=== PATIENT | female | born 1995 | race African-American/Black ===

== ENCOUNTER 2020-10-26 11:03 | Emergency (ER) | payer OTHER ==
[~2020-10-26] VITALS: Ht 167.6 cm; Wt 112.6 kg
[2020-10-26 11:03] VITALS: BP 118/80
[2020-10-26] MEDS ORDERED: ACETAMINOPHEN 325 MG TABLET PO ONE (11:30)
[2020-10-26] MEDS ORDERED: LORazepam 1 MG TABLET PO ONE (11:30)
--- NOTE | 2020-10-26 11:35 | PHYS DOC ---
Past History Past Surgical History: No Surgical History (CINDY MONCADA APRN) Alcohol Use: None (CINDY MONCADA APRN) Adult General Chief Complaint Chief Complaint: ANXIETY/PANIC ATTACK HPI HPI Patient is a 24-year-old female who presents to the emergency department complaining of a panic attack at work that resulted in her passing out. 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 Patient reports that her boss had contacted human resources and they wanted to talk to her, patient states at that point she developed a rapid heart rate with chest pain and became dizzy and passed out for 1 minute. Patient denies hitting her head. Patient states that she started feeling better when the ambulance picked her up to bring her to the emergency department. Patient states that since she has been in the emergency department and that she no longer has a rapid heart rate or chest pain or other symptoms. Patient denies homicidal suicidal ideation. Reports seeing a therapist for anxiety problems when she was 20 or 21 years old however has not seen one since. Patient states she is on no medications at home, does not see a doctor regularly, reports her last mental cycle was October 14 with normal duration and flow. Reports a allergy to amoxicillin and Motrin which makes her body swell and tongue close off. Patient denies any other physical complaints or physical concerns. (CINDY MONCADA APRN) Review of Systems Review of Systems 14 body systems of review of systems have been reviewed. See HPI for pertinent positives and negative responses, otherwise all other systems are negative, nonpertinent or noncontributory. Constitutional: Negative except as outlined in HPI above. Skin: Negative except as outlined in HPI above. Eyes: Negative except as outlined in HPI above. HENT: Negative except as outlined in HPI above. Respiratory: Negative except as outlined in HPI above. Cardiovascular: Negative except as outlined in HPI above. GI: Negative except as outlined in HPI above. : Negative except as outlined in HPI above. Musculoskeletal: Negative except as outlined in HPI above. Integument: Negative except as outlined in HPI above. Neurologic: Negative except as outlined in HPI above. Endocrine: Negative except as outlined in HPI above. Lymphatic: Negative except as outlined in HPI above. Psychiatric: Negative except as outlined in HPI above. (CINDY MONCADA APRN) Allergies Allergies Allergies Coded Allergies Type Severity Reaction Last Updated Verified amoxicillin Allergy Unknown 10/26/20 Yes ibuprofen Allergy Unknown 10/26/20 Yes (CINDY MONCADA APRN) Physical Exam Physical Exam Constitutional: Well developed, well nourished, no acute distress, non-toxic appearance. 24-year-old female in no apparent distress. HENT: Normocephalic, atraumatic. Eyes: Conjunctiva normal, no discharge. Neck: Normal range of motion, no stridor. Cardiovascular: No cyanosis appreciated, distal cap refill less than 2 seconds. Lungs & Thorax: Patient is in no respiratory distress, no audible adventitious lung sounds appreciated. Abdomen: Nontender, no abnormalities noted. Skin: Warm, dry, no erythema, no rash. Back: No tenderness, no deformities. Extremities: No tenderness, no cyanosis, no clubbing, ROM intact, no edema. Neurologic: Alert and oriented X 3, normal motor function, normal sensory funct ion, no focal deficits noted. Psychologic: Affect normal, judgement normal, mood normal. (CINDY MONCADA APRN) Current Patient Data Vital Signs Vital Signs Date Time Temp Pulse Resp B/P (MAP) Pulse Ox O2 Delivery O2 Flow Rate FiO2 10/26/20 11:03 78 26 118/80 100 Room Air (CINDY MONCADA APRN) EKG EKG EKG performed at 1106 by house respiratory therapy staff shows a normal sinus rhythm without ectopy, NM interval 0.154, QTc interval 0.381, heart rate 69 bpm, no acute STEMI, no ACS, no acute ischemia appreciated, EKG interpreted by ED attending physician Dr. Malone. (CINDY MONCADA APRN) Radiology/Procedures Radiology/Procedures [] (CINDY MONCADA APRN) Heart Score C/O Chest Pain: No Risk Factors: Risk Factors: DM, Current or recent (<one month) smoker, HTN, HLP, family history of CAD, obesity. Risk Scores: Risk Factors: DM, Current or recent (<one month) smoker, HTN, HLP, family history of CAD, obesity. (CINDY MONCADA APRN) Course & Med Decision Making Course & Med Decision Making Pertinent Labs and Imaging studies reviewed. (See chart for details) 24-year-old female, vital signs reviewed, presents to the emergency department complaining of a anxiety panic attack when her boss at work wanted her to talk with human resources. Patient's physical examination unremarkable, patient currently denies chest pains or headaches or shortness of breath. Patient is in no acute distress. Discussed with patient will perform EKG related to patient's report of chest pain prior to arrival to the ER. Patient is amenable to this plan, patient states she just wants to go home. Offered patient p.o. Ativan for anxiety symptoms and Tylenol for aches and pains, patient states she is okay with this plan but just wants to go home. Patient is complaining of rapid heart rate and chest pain along with reported syncopal episode most likely related to an acute anxiety/panic attack. Symptoms have resolved. Patient has mother at bedside who feels comfortable taking the patient home. Patient will be discharged home. Discussed with the patient all findings and diagnostic testing as well as the need to follow-up with their primary care provider for further evaluation and treatment or return to the ED if any new or worsening symptoms. Strict return precautions were also discussed at length, the patient voiced understanding and agreement with the discharge planning. The patient was nontoxic in appearance, in no apparent distress, and hemodynamically stable at the time of disposition. (CINDY MONCADA APRN) Dragon Disclaimer Dragon Disclaimer This electronic medical record was generated, in whole or in part, using a voice recognition dictation system. (CINDY MONCADA APRN) Attending Co-Sign The patient was seen and interviewed as well as examined at the bedside. The chart was reviewed. The case was discussed. Agree with the plan of care. (TOBIAS MALONE DO) Departure Departure: Impression: Primary Impression: Anxiety attack Additional Impression: Panic attack as reaction to stress Disposition: 01 HOME / SELF CARE / HOMELESS Condition: GOOD Referrals: JEANETTE MILLAN DO (PCP) Patient Instructions: Anxiety and Panic Attacks Additional Instructions: You were seen today in the emergency department after an anxiety/panic attack while at work. As we discussed, this is most likely a result of your stressful environment at work. You were given Tylenol and a medication for anxiety called Ativan today in the emergency department. You have stated that you are feeling better and would like to go home. Your physical exam was reassuring that there are not suffering from a current emergency health condition. I encourage you to go home and get some rest. As we discussed, please return immediately to the emergency department for any further anxiety attacks or other concerns. Please follow-up with your primary care physician this coming week to discuss your anxiety and panic problems at work. Thank you for visiting our Emergency Department. It was a pleasure taking care of you today in the emergency department and we appreciate you trusting us with your care. If any additional problems come up don't hesitate to return to visit us. Please follow up with your primary care provider so they can plan additional care if needed and know about the problem that you had. If symptoms worsen come back to the Emergency Department. Any concerning symptoms that start such as chest pain, shortness of air, weakness or numbness on one side of the body, running high fevers or any other concerning symptoms return to the ER. You have been tested for or diagnosed with COVID-19. It is an infection caused by a new type of coronavirus. COVID-19 will cause cold-like or mild flu symptoms in most. It can cause more severe symptoms like problems breathing in some. There is no treatment for COVID-19. The body will clear the infection over time. Self-care will help to ease discomfort. Steps to Take: Self-Care Rest as needed. Healthy habits may help you feel better. Steps include: Choose healthy foods including fruits and vegetables. Drink water throughout the day. Get plenty of sleep each night. If you smoke, try to quit. It may ease breathing. Avoid alcohol. Keep Others Healthy The virus can spread to others. Droplets are released every time you sneeze or cough. The droplets can get into the mouth, nose, or eyes of people near you and lead to infection. To lower the chances of spreading COVID-19 to others: Stay at home until your doctor has said it is safe to leave. If you tested positive this will mean staying isolated until both of the following are true: At least 7 days have passed since the start of illness. You are free of fever for at least 72 hours without the use of medicine. During this time: - Avoid public areas, events, or transportation. Do not return to work or school until your doctor has said it is safe to do so. - Call ahead if you need to go to a medical center. Let them know you may have COVID-19. It will help them guide you where to go. They may also ask you to wear a facemask when you come to the office. - If you call for emergency medical services, let them know you may have COVID- 19. While at home: - Try to avoid close contact with others. Stay about 6 feet away. - If possible, spend most of your time in a separate room from others. - Use a face mask if you will be in close contact with others such as sharing a room or vehicle. - Have someone wipe down common surfaces in the home. Use household drying room operator every day on areas like doorknobs, counters, or sinks. - Cough or sneeze into a tissue. Throw the tissue away right after use. If a tissue is not available, cough or sneeze into your elbow. - Wash your hands often. Wash them after sneezing or coughing. Use soap and water and wash for at least 20 seconds. Alcohol based hand yarn cleaner can be used if soap and water is not available. - Do not prepare food for others. Avoid sharing personal items like forks, spoons, or toothbrushes. - Avoid close contact with pets while you are sick. There is no evidence of the virus passing to pets. This is a safety step until more is known about this virus. Isolation can be frustrating. Social interaction can help. Keep in touch with friends and family through phone and tech options. You can still interact with others in your home, just keep a safe distance of about 6 feet. Follow-up: Your doctors office will check in with you to see if there are any changes in your health. You may be asked to keep track of symptoms to share with them. They will also let you know when you are clear to be in public again. Problems to Look Out For: Contact your doctor if your recovery is not going as you expect. Get emergency care if you have problems such as: - Trouble breathing - Nonstop chest pain or pressure - Changes in awareness, confusion, or problems waking - Lips or face have bluish color - Worsening of symptoms If you think you have an emergency, call for emergency medical services right away. As taken from [facility] Health Problem Qualifiers CINDY MONCADA APRN Oct 26, 2020 11:35 TOBIAS MALONE DO Oct 27, 2020 06:17
--- NOTE | 2020-10-27 06:29 | EKG ---
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
== END 2020-10-26 11:42 | disposition home or self-care (01) ==
LOC: ER 11:03
DX: F43.0 Acute stress reaction (principal); R00.0 Tachycardia, unspecified; Z88.1 Allergy status to other antibiotic agents; Z88.6 Allergy status to analgesic agent
CPT/HCPCS: 93005; 99283